=== PATIENT | male | born 1980 | race Caucasian/White ===

== ENCOUNTER 2023-01-14 20:50 | Emergency (ER) | payer OTHER ==
[2023-01-14] MEDS ORDERED: Norflex 60 MG/2 ML IM ONE (21:22)
[2023-01-14] MEDS ORDERED: TORAdol 30 mg Injection IM ONE (21:22)
--- NOTE | 2023-01-14 21:27 | ERPHSYRPT ---
- History of Present Illness Source: patient, other () Exam Limitations: no limitations Patient Subjective Stated Complaint: Pt reports "I was lifting a part at work and had a sharp pain in my lower back that went up and down my back. It happened at about 2am. I tried a heating pad and sitting under hot water in the shower but nothing is helping." Triage Nursing Assessment: Pt alert and oriented x3. Ambulated to ED cot without difficulty. No apaprent respiratory distress. Skin w/p/d. No bruising/lacerations/redness/deformities noted to lower spine. Intact ROM of extremities. Physician History: 42 yo wm w h/o chronic lumbar pain states that he hurt his back lifting at work last night and could not make it through his shift. Pain is 10 on scale and sharp. it is worse w movement and radiates to B legs. He denies incontinence, dysuria, hematuria, and LE paralysis. He needs a work excuse. Timing/Duration: other (Last night) Method of Injury: lifting Quality: sharp Back Pain Location: lumbar spine Back Pain Radiation: lower legs Severity of Pain-Max: severe Severity of Pain-Current: severe Modifying Factors: Improves With: movement Associated Symptoms: denies symptoms Previous symptoms: same symptoms as today Allergies/Adverse Reactions: No Known Drug Allergies Allergy (Unverified 01/14/23 20:57) Hx Tetanus, Diphtheria Vaccination/Date Given: No Hx Influenza Vaccination/Date Given: No Hx Pneumococcal Vaccination/Date Given: No Travel Risk - International Travel Have you traveled outside of the country in past 3 weeks: No - Coronavirus Screening Are you exhibiting any of the following symptoms?: No Close contact with a COVID-19 positive Pt in past 14-21 Days: No - Vaccine Status Have you recieved a Covid-19 vaccination: No - Review of Systems Constitutional: No Symptoms Eyes: No Symptoms Ears, Nose, & Throat: No Symptoms Respiratory: No Symptoms Cardiac: No Symptoms Abdominal/Gastrointestinal: No Symptoms Genitourinary Symptoms: No Symptoms Musculoskeletal: No Symptoms, Back Pain Skin: No Symptoms Neurological: No Symptoms Psychological: No Symptoms Endocrine: No Symptoms Hematologic/Lymphatic: No Symptoms Immunological/Allergic: No Symptoms - Past Medical History Neurological History: No Pertinent History Cardiac History: No Pertinent History Respiratory History: No Pertinent History Endocrine Medical History: No Pertinent History History: Other Psycho-Social History: No Pertinent History Other Medical History: kidney stones, shingles, scoliosis - Past Surgical History Past Surgical History: No - Social History Smoking Status: Current every day smoker Exposure to second hand smoke: Yes Drug Use: marijuana Patient Lives Alone: Yes - Nursing Vital Signs Nursing Vital Signs: Initial Vital Signs Temperature 97.5 F 01/14/23 20:56 Pulse Rate 88 01/14/23 20:56 Respiratory Rate 22 01/14/23 20:56 Blood Pressure 170/90 01/14/23 20:56 O2 Sat by Pulse Oximetry 100 01/14/23 20:56 Pain Scale Pain Intensity [Lower Back] 9 Pain Intensity 7 Hypertension - Physical Exam General Appearance: no apparent distress Eye Exam: PERRL/EOMI, eyes nml inspection Ears, Nose, Throat Exam: normal ENT inspection, TMs normal, pharynx normal, moist mucous membranes Neck Exam: normal inspection, non-tender, supple, full range of motion, No meningismus, No mass, No Brudzinski, No Kernig's, No carotid bruit Respiratory Exam: normal breath sounds, lungs clear, airway intact, No respiratory distress Cardiovascular Exam: regular rate/rhythm, normal heart sounds, normal peripheral pulses, capillary refill <2 sec, No murmur Gastrointestinal Exam: soft, normal bowel sounds, No tenderness Back Exam: vertebral tenderness (Moderate lumbar TTP/Reflexes symmetric/No significant pain w straight leg raises) Extremity Exam: normal inspection, normal range of motion Peripheral Pulses: carotid (R): 2+, carotid (L): 2+ Neurologic Exam: alert, oriented x 3, cooperative, 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 nml as tested, normal mood/affect, nml cerebellar function, nml station & gait, sensation nml Skin Exam: normal color, warm, dry Lymphatic Exam: No adenopathy SpO2 Interpretation: normal SpO2: 100 O2 Delivery: Room Air - Course Nursing assessment & vital signs reviewed: Yes Ordered Tests: Medication Summary Discontinued Medications Generic Name Dose Route Start Last Admin Trade Name Freq PRN Reason Stop Dose Admin Ketorolac Tromethamine 30 mg 01/14/23 21:22 01/14/23 21:31 Ketorolac Tromethamine 30 Mg/Ml Inj IM 01/14/23 21:23 30 mg STAT ONE Administration Ketorolac Tromethamine Confirm 01/14/23 21:28 Ketorolac Tromethamine 30 Mg/Ml Inj Administered 01/14/23 21:29 Dose 30 mg .ROUTE .STK-MED ONE Orphenadrine Citrate 60 mg 01/14/23 21:22 01/14/23 21:31 Orphenadrine Citrate 60 Mg/2 Ml Vial IM 01/14/23 21:23 60 mg STAT ONE Administration Orphenadrine Citrate Confirm 01/14/23 21:28 Orphenadrine Citrate 60 Mg/2 Ml Vial Administered 01/14/23 21:29 Dose 60 mg .ROUTE .STK-MED ONE - Progress Progress: improved Progress Note: 01/14/23 21:28 Nursing note and vital signs reviewed No food or housing insecurities noted Pt has access to medical care/medicine 30mg IM Toradol/60mg IM Norflex Pt wo evidence of cauda equina syndrome or spinal cord compromise Counseled pt/family regarding: diagnosis, need for follow-up - Departure Departure Disposition: Home Clinical Impression: Lumbar strain Condition: Stable Critical Care Time: No Instructions: Low Back Pain (DC) Additional Instructions: Follow up with rikki allen MD or pawan BELTRÁN Norflex/toradol as needed for pain Return to ER as needed Forms: Work/School Release Form Prescriptions: Orphenadrine Citrate 100 mg [Norflex 100 MG Tablet] 100 mg PO BID PRN PRN #10 tab PRN Reason: Pain Ketorolac Trometh 10 mg Tab [TORAdol 10 MG TABLET] 10 mg PO TID PRN PRN #10 tablet PRN Reason: Pain
[2023-01-14] MEDS ORDERED: Norflex 60 MG/2 ML ONE (21:28)
[2023-01-14] MEDS ORDERED: TORAdol 30 mg Injection ONE (21:28)
[2023-01-14 21:55] VITALS: BP 138/94; PULSE 80
[2023-01-14 22:51] VITALS: O2SAT 100
== END 2023-01-14 21:56 | disposition home or self-care (01) ==
LOC: ED 20:50
DX: S39.012A Strain of muscle, fascia and tendon of lower back, initial encounter (principal); X50.9XXA Other and unspecified overexertion or strenuous movements or postures, initial encounter; Y99.0 Civilian activity done for income or pay; Z28.310 Unvaccinated for COVID-19; Z72.0 Tobacco use
CPT/HCPCS: 96372; 99283; J1885; J2360

== ENCOUNTER 2023-01-17 16:53 | Emergency (ER) | payer OTHER ==
--- NOTE | 2023-01-17 16:57 | ERPHSYRPT ---
- History of Present Illness Time Seen by Provider: 01/17/23 16:57 Source: patient Exam Limitations: no limitations Physician History: This is a 42-year-old white male who presents with a left earache that started yesterday followed by pain in the left posterior molar on the left left lower side. Last evening he had swelling to his left jaw and this morning the swelling was increased. He has not had a fever. He has no shortness of breath. Timing/Duration: yesterday Severity: mild (To moderate) Associated Symptoms: denies symptoms, other (Left ear ache, left lower molar pain), No fever Allergies/Adverse Reactions: No Known Drug Allergies Allergy (Verified 01/17/23 17:03) Hx Tetanus, Diphtheria Vaccination/Date Given: No Hx Influenza Vaccination/Date Given: No Hx Pneumococcal Vaccination/Date Given: No Travel Risk - International Travel Have you traveled outside of the country in past 3 weeks: No - Coronavirus Screening Are you exhibiting any of the following symptoms?: No Close contact with a COVID-19 positive Pt in past 14-21 Days: No - Vaccine Status Have you recieved a Covid-19 vaccination: No - Review of Systems Constitutional: No Symptoms Eyes: No Symptoms Ears, Nose, & Throat: Ear Pain (Left side), Other (Left lower molar pain) Respiratory: No Symptoms Cardiac: No Symptoms Abdominal/Gastrointestinal: No Symptoms Genitourinary Symptoms: No Symptoms Musculoskeletal: No Symptoms Skin: No Symptoms Neurological: No Symptoms Psychological: No Symptoms Endocrine: No Symptoms Hematologic/Lymphatic: No Symptoms Immunological/Allergic: No Symptoms All Other Systems: Reviewed and Negative - Past Medical History Pertinent Past Medical History: No Neurological History: No Pertinent History Cardiac History: No Pertinent History Respiratory History: No Pertinent History Endocrine Medical History: No Pertinent History History: Other Psycho-Social History: No Pertinent History Other Medical History: kidney stones, shingles, scoliosis - Past Surgical History Past Surgical History: No - Social History Smoking Status: Current every day smoker Exposure to second hand smoke: Yes Drug Use: marijuana Patient Lives Alone: Yes - Nursing Vital Signs Nursing Vital Signs: Initial Vital Signs Temperature 97.9 F 01/17/23 17:04 Pulse Rate 99 H 01/17/23 17:04 Respiratory Rate 18 01/17/23 17:04 Blood Pressure 148/98 01/17/23 17:04 O2 Sat by Pulse Oximetry 98 01/17/23 17:04 Pain Scale Pain Intensity 0 - Physical Exam General Appearance: no apparent distress, alert, thin Eye Exam: PERRL/EOMI, eyes nml inspection Ears, Nose, Throat Exam: TMs normal, moist mucous membranes, other (Left posterior molar that is fractured with an obvious infection.) Neck Exam: normal inspection, non-tender, supple, full range of motion Respiratory Exam: airway intact, No chest tenderness, No respiratory distress Gastrointestinal/Abdomen Exam: No tenderness Rectal Exam: not done Back Exam: normal inspection, normal range of motion, No CVA tenderness, No vertebral tenderness Extremity Exam: normal inspection, normal range of motion, pelvis stable Neurologic Exam: alert, oriented x 3, cooperative, 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 nml as tested, normal mood/affect, nml cerebellar function, nml station & gait, sensation nml Skin Exam: normal color, warm, dry Lymphatic Exam: No adenopathy SpO2 Interpretation: normal O2 Delivery: Room Air - Course Nursing assessment & vital signs reviewed: Yes - Progress Progress: unchanged Counseled pt/family regarding: diagnosis, need for follow-up Medical Desision Making - Discussion of managment Agreed on:: Treatment plan, need for follow-up - Risk of complications Low Risk: Low risk of morbidity from additional dx testing or treatment The pt has a mod risk of morbidity or mortality based on: Need for prescription drug management - Departure Departure Disposition: Home Clinical Impression: Dental infection, Tooth fracture Condition: Stable Critical Care Time: No Referrals: DOCTOR,NO FAMILY [Primary Care Provider] - Follow up/PCP as directed Additional Instructions: Add ibuprofen 600 mg orally 3 times a day with food for 5 days. Call a dentist tomorrow morning, 01/18/2023, to make arranges for further evaluation management and definitive care. Take your antibiotics as prescribed. Prescriptions: Oxycodone HCl/Acetaminophen [Percocet 5-325 mg Tablet] 1 each PO Q8H PRN PRN #6 tablet MDD 3 PRN Reason: Moderate To Severe Pain Amoxicillin 500 mg Cap [Amoxil 500 mg] 500 mg PO TID #30 cap
[2023-01-17 17:09] VITALS: BP 148/98; PULSE 99; O2SAT 98
[2023-01-17] MEDS ORDERED: AMOXIL 500 MG PO ONE (17:52)
[2023-01-17] MEDS ORDERED: AMOXIL 500 MG ONE (18:01)
== END 2023-01-17 18:12 | disposition home or self-care (01) ==
LOC: ED 16:53
DX: K04.7 Periapical abscess without sinus (principal); S02.5XXA Fracture of tooth (traumatic), initial encounter for closed fracture; H92.02 Otalgia, left ear; K08.89 Other specified disorders of teeth and supporting structures; Z79.891 Long term (current) use of opiate analgesic; Z28.310 Unvaccinated for COVID-19; Z72.0 Tobacco use
CPT/HCPCS: 99281; A9270-GY

== ENCOUNTER 2024-12-23 13:02 | Emergency (ER) | payer MEDICAID, OTHER ==
[2024-12-23 13:34] LABS: Absolute Neutrophil Ct (ANC) 20.86 x10^3/uL (1.78-5.38); BASOPHIL % 0.1 % (0.2-1.2); Basophil (Absolute #) 0.02 x10^3/uL (0.01-0.08); Eosinophil (Absolute #) 0.01 x10^3/uL (0.04-0.54); Hematocrit 42.9 % (40.1-51.0); Hemoglobin 15.2 g/dL (13.7-17.5); IMMATURE GRAN # 0.17 x10^3u/L (0.001-0.031); IMMATURE GRAN % 0.7 % (0.001-0.429); Lymphocyte (Absolute #) 1.33 x10^3/uL (1.32-3.57); Lymphocytes % 5.6 % (21.8-53.1); Mean Cell Volume 88.8 fL (79.0-92.2); Mean Corpuscular Hemoglobin 31.5 pg (25.7-32.2); Mean Corpuscular Hgb Concent. 35.4 g/dL (32.3-36.5); Mean Platelet Volume 11.7 fL (9.4-12.4); Monocytes % 5.1 % (5.3-12.2); Neutrophil % 88.5 % (34.0-67.9); Platelet Count 358 x10^3/uL (163-337); Red Blood Count 4.83 x10^6/uL (4.63-6.08); Red Cell Distribution Width 12.8 % (11.6-14.4); White Blood Count 23.6 x10^3/uL (4.23-9.07)
[2024-12-23 13:59] LABS: Creatinine 1 3.18 mg/dL (0.66-1.25); EST GLOMERULAR FILTRATION RATE 23.8 ML/MIN
[2024-12-23 14:01] LABS: ANION GAP 20.5 MEQ/L (5-15); BILIRUBIN,TOTAL 3.3 mg/dL (0.2-1.3); Calcium 9.2 mg/dL (8.4-10.2); Potassium 3.6 mmol/L (3.5-5.1)
[2024-12-23] MEDS: Sodium Chloride 0.9% 1000 ML 1,000 ML IV STA (14:01)
--- NOTE | 2024-12-23 15:17 | XRAY ---
Indication: Chest pain. Multiple contiguous axial images obtained through the chest without contrast. Comparison: None Diffuse pneumomediastinum and extensive bilateral subcutaneous emphysema throughout chest. Subcutaneous emphysema further extends into neck and proximal upper extremities are not completely included. Spine also demonstrates epidural air. Heart not enlarged. Aorta is normal in course and caliber. Small subcarinal bilateral hilar calcified nodes. Moderately fluid distended esophagus up to 3 cm diameter presumed from gastroesophageal reflux. Esophageal obstruction not completely excluded. Lungs demonstrates mild pulmonary emphysema and a few bilateral calcified granulomas. No suspicious pulmonary mass/nodule, infiltrate, effusion, or pneumothorax. Bony thorax intact. CT abdomen/pelvis reported separately. Impression: 1. Diffuse pneumomediastinum, diffuse chest subcutaneous emphysema, and spinal epidural air. Etiology unknown. 2. Abnormal fluid distended esophagus. Rule out GERD versus distal obstruction. 3. Incidental pulmonary emphysema and old granulomatous disease. Comment: Telephone report given to Dr. Gil at 1507 hrs. on December 23, 2024.
--- NOTE | 2024-12-23 15:22 | XRAY ---
Indication: Abdomen pain. Vomiting. Multiple contiguous axial images obtained through the abdomen and pelvis without contrast. Comparison: None CT chest reported separately. Chest subcutaneous emphysema further extends into the upper abdomen and paraspinal region. Additional small air seen just posterior to left ileopsoas muscle. Noncontrasted stomach and bowel loops appear nonobstructed. There is moderate diffuse scattered colonic fecal debris with mild rectal fecal impaction. No free fluid. Remaining liver, gallbladder, pancreas, spleen, adrenal glands, kidneys, ureters, bladder, and aorta are unremarkable for noncontrast exam. Osseous structures intact. Impression: 1. Continuation of chest subcutaneous emphysema into upper abdomen and paraspinal region. Additional tiny left retroperitoneal air. Etiology unknown. 2. Moderate diffuse fecal stasis with rectal fecal impaction. Comment: Telephone report given to Dr. Gil at 1507 hrs. on December 23, 2024.
[2024-12-23] MEDS ORDERED: Sodium Chloride 0.9% 1000 ML 1,000 ML ONE (15:39)
[2024-12-23] MEDS ORDERED: PIPERACILLIN/TAZOBACTAM IV ONE (15:39)
[2024-12-23] MEDS ORDERED: Sodium Chloride 100ML MINI-BAG PLUS 100 ML IV ONE (15:39)
--- NOTE | 2024-12-23 15:44 | ERPHSYRPT ---
- History of Present Illness Time Seen by Provider: 12/23/24 13:02 Historian: patient, EMS Exam Limitations: no limitations Patient Subjective Stated Complaint: pt c/o of chest pain, weakness, weight loss, vomiting since the beginning of the year Triage Nursing Assessment: Pt brought to the ER by EMS, vitals wnl, rates abdominal pain as 7/10, pulses normal, skin n/w/d, pt reports usually weighing around 180lbs but presents today at 109lbs, unable to eat for over a month, weak, N&V, denies chest pain at this time but was having it earlier Physician History: 44-year-old male with history of tobacco use presented in the ER with chief complaint of chest pain for the last 2 to 3 days with progressive worsening. Patient reports moderate intensity sharp pain all across the chest with no significant aggravating or relieving factors. He got aspirin and route to the ER and pain is better now. Patient reports having off-and-on nausea and vomiting for almost 4 to 6 weeks with more than 40 pounds weight loss. Patient reports he feels weak fatigued tired and dehydrated. Reports having occasionally abdominal cramping but no significant pain. Denies any fall or trauma. Patient is very cachectic and currently weighs around 110's pound Aspirin Treatment Today: 81 mg x 4, provided by EMS Allergies/Adverse Reactions: No Known Drug Allergies Allergy (Verified 12/23/24 13:13) Home Medications: No Reportable Medications [No Reported Medications] 12/23/24 [History] Hx Tetanus, Diphtheria Vaccination/Date Given: No Hx Influenza Vaccination/Date Given: No Hx Pneumococcal Vaccination/Date Given: No Travel Risk - International Travel Have you traveled outside of the country in past 3 weeks: No - Emerging Infectious Disease Are you exhibiting symptoms associated with any current EIDs: Yes Symptoms: Abdominal Pain - Review of Systems Constitutional: Fatigue, Lethargy, Weakness Eyes: No Symptoms Ears, Nose, & Throat: No Symptoms Respiratory: Cough Cardiac: Chest Pain Abdominal/Gastrointestinal: Abdominal Pain, Nausea, Vomiting Genitourinary Symptoms: No Symptoms Musculoskeletal: Myalgias Skin: No Symptoms Neurological: No Symptoms Endocrine: No Symptoms Hematologic/Lymphatic: No Symptoms Immunological/Allergic: No Symptoms - Past Medical History Pertinent Past Medical History: Yes Neurological History: No Pertinent History Cardiac History: No Pertinent History Respiratory History: No Pertinent History Endocrine Medical History: No Pertinent History History: Other Psycho-Social History: No Pertinent History Other Medical History: kidney stones, shingles, scoliosis - Past Surgical History Past Surgical History: No - Social History Smoking Status: Current every day smoker How long have you smoked: years Exposure to second hand smoke: Yes Drug Use: marijuana Patient Lives Alone: Yes - Social Determinants of Health Will the patient participate in the screening: Declined to provide - Nursing Vital Signs Nursing Vital Signs: Initial Vital Signs Pulse Rate 100 H 12/23/24 13:03 Respiratory Rate 21 12/23/24 13:03 Blood Pressure 115/85 12/23/24 13:03 O2 Sat by Pulse Oximetry 99 12/23/24 13:03 Pain Scale Pain Intensity 0 - Physical Exam General Appearance: no apparent distress, alert, cachetic Eye Exam: PERRL/EOMI Ears, Nose, Throat Exam: normal ENT inspection Neck Exam: normal inspection, non-tender, supple, full range of motion Respiratory Exam: normal breath sounds, lungs clear, other (Crepitus) Cardiovascular Exam: regular rate/rhythm, normal heart sounds Gastrointestinal/Abdomen Exam: soft, normal bowel sounds, tenderness (Mild diffuse tenderness. 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 Assembler Hydraulic STAT Care 12/23/24 13:19 Completed EKG-ER Only STAT Care 12/23/24 13:18 Completed IV Insertion STAT Care 12/23/24 13:18 Completed ABDOMEN AND PELVIS W/0 CONTRAS [CT] Stat Exams 12/23/24 13:19 Completed CHEST WITHOUT CONTRAST [CT] Stat Exams 12/23/24 13:18 Completed CBC W DIFF Stat Lab 12/23/24 13:33 Completed CK-Creatinine Phosphokinase Stat Lab 12/23/24 13:33 Completed CMP Stat Lab 12/23/24 13:33 Completed LIPASE Stat Lab 12/23/24 13:33 Completed Lactic Acid Stat Lab 12/23/24 13:35 Completed Lactic Acid Stat Lab 12/23/24 15:41 Completed NT PRO BNPII Stat Lab 12/23/24 13:33 Completed TROPONIN Q4H Lab 12/23/24 13:33 Completed TROPONIN Q4H Lab 12/23/24 17:07 Completed Medication Summary Discontinued Medications Generic Name Dose Route Start Last Admin Trade Name Freq PRN Reason Stop Dose Admin Sodium Chloride 1,000 mls @ 999 mls/hr 12/23/24 13:18 12/23/24 15:53 Sodium Chloride 0.9% 1000 Ml IV 12/23/24 14:18 Infused .Q1H1M STA Infusion Sodium Chloride 1,000 mls @ 125 mls/hr 12/23/24 15:30 12/23/24 15:46 Sodium Chloride 0.9% 1000 Ml IV 01/22/25 15:29 125 mls/hr .Q8H NICANOR Administration Piperacillin Sod/Tazobactam 100 mls @ 200 mls/hr 12/23/24 15:26 12/23/24 15:47 Sod 3.375 gm/ Sodium Chloride IV 12/23/24 15:55 200 mls/hr STAT ONE Administration Sodium Chloride Confirm 12/23/24 15:39 Sodium Chloride 100ml Mini-Bag Plus Administered 12/23/24 15:40 Dose 100 mls @ ud IV .STK-MED ONE Sodium Chloride Confirm 12/23/24 15:39 Sodium Chloride 0.9% 1000 Ml Administered 12/23/24 15:40 Dose 1,000 mls @ ud .ROUTE .STK-MED ONE Piperacillin Sod/Tazobactam Sod Confirm 12/23/24 15:39 Piperacillin/Tazobactam Sodium 3.375 Gm Vial Administered 12/23/24 15:40 Dose 3.375 gm IV .STK-MED ONE Lab/Rad Data: Laboratory Result Diagrams 12/23/24 13:33 12/23/24 13:33 Laboratory Results 12/23/24 12/23/24 12/23/24 Range/Units 17:07 15:41 13:35 WBC (4.23-9.07) x10^3/uL RBC (4.63-6.08) x10^6/uL Hgb (13.7-17.5) g/dL Hct (40.1-51.0) % MCV (79.0-92.2) fL MCH (25.7-32.2) pg MCHC (32.3-36.5) g/dL RDW (11.6-14.4) % Plt Count (163-337) x10^3/uL MPV (9.4-12.4) fL Gran % (34.0-67.9) % Immature Gran % (Auto) (0.001-0.429) % Nucleat RBC Rel Count (0.00-0.2) % Eos # (Auto) (0.04-0.54) x10^3/uL Immature Gran # (Auto) (0.001-0.031) x10^3u/L Absolute Lymphs (auto) (1.32-3.57) x10^3/uL Absolute Monos (auto) (0.30-0.82) x10^3/uL Absolute Nucleated RBC (0.00-0.012) x10^3u/L Lymphocytes % (21.8-53.1) % Monocytes % (5.3-12.2) % Eosinophils % (0.8-7.0) % Basophils % (0.2-1.2) % Absolute Granulocytes (1.78-5.38) x10^3/uL Basophils # (0.01-0.08) x10^3/uL Sodium (135-145) mmol/L Potassium (3.5-5.1) mmol/L Chloride (98-107) mmol/L Carbon Dioxide (22-30) mmol/L Anion Gap (5-15) MEQ/L BUN (9-20) mg/dL Creatinine (0.66-1.25) mg/dL Estimated GFR ML/MIN Glucose (74-106) mg/dL Lactic Acid 1.2 2.0 (0.4-2.0) Calcium (8.4-10.2) mg/dL Total Bilirubin (0.2-1.3) mg/dL AST (17-59) U/L ALT (0-50) U/L Alkaline Phosphatase (38-126) U/L Creatine Kinase (55-170) U/L Troponin I < 0.012 (0.000-0.033) ng/mL NT-Pro-B Natriuret Pep (<300) pg/mL Serum Total Protein (6.3-8.2) g/dL Albumin (3.5-5.0) g/dL Lipase (23-300) U/L Slides for Path Review 12/23/24 12/23/24 12/23/24 Range/Units 13:33 13:33 13:33 WBC 23.6 H (4.23-9.07) x10^3/uL RBC 4.83 (4.63-6.08) x10^6/uL Hgb 15.2 (13.7-17.5) g/dL Hct 42.9 (40.1-51.0) % MCV 88.8 (79.0-92.2) fL MCH 31.5 (25.7-32.2) pg MCHC 35.4 (32.3-36.5) g/dL RDW 12.8 (11.6-14.4) % Plt Count 358 H (163-337) x10^3/uL MPV 11.7 (9.4-12.4) fL Gran % 88.5 H (34.0-67.9) % Immature Gran % (Auto) 0.7 H (0.001-0.429) % Nucleat RBC Rel Count 0.0 (0.00-0.2) % Eos # (Auto) 0.01 L (0.04-0.54) x10^3/uL Immature Gran # (Auto) 0.17 H (0.001-0.031) x10^3u/L Absolute Lymphs (auto) 1.33 (1.32-3.57) x10^3/uL Absolute Monos (auto) 1.20 H (0.30-0.82) x10^3/uL Absolute Nucleated RBC 0.00 (0.00-0.012) x10^3u/L Lymphocytes % 5.6 L (21.8-53.1) % Monocytes % 5.1 L (5.3-12.2) % Eosinophils % 0.0 L (0.8-7.0) % Basophils % 0.1 L (0.2-1.2) % Absolute Granulocytes 20.86 H (1.78-5.38) x10^3/uL Basophils # 0.02 (0.01-0.08) x10^3/uL Sodium 140 (135-145) mmol/L Potassium 3.6 (3.5-5.1) mmol/L Chloride 90 L (98-107) mmol/L Carbon Dioxide 33 H (22-30) mmol/L Anion Gap 20.5 H (5-15) MEQ/L BUN 151 H (9-20) mg/dL Creatinine 3.18 H (0.66-1.25) mg/dL Estimated GFR 23.8 ML/MIN Glucose 142 H (74-106) mg/dL Lactic Acid (0.4-2.0) Calcium 9.2 (8.4-10.2) mg/dL Total Bilirubin 3.30 H (0.2-1.3) mg/dL AST 80 H (17-59) U/L ALT 150 H (0-50) U/L Alkaline Phosphatase 169 H (38-126) U/L Creatine Kinase 95 (55-170) U/L Troponin I < 0.012 (0.000-0.033) ng/mL NT-Pro-B Natriuret Pep 257 (<300) pg/mL Serum Total Protein 8.0 (6.3-8.2) g/dL Albumin 5.0 (3.5-5.0) g/dL Lipase 360 H (23-300) U/L Slides for Path Review YES - Progress Progress: improved, re-examined Air Movement: good Progress Note: 12/23/24 17:38 44-year-old is evaluated in the ER for chest pain along with nausea vomiting, decreased oral intake and weight loss. EKG did not show any acute ST elevations. Patient pain is already improving on presentation. Given fluid bolus, workup showed white count of 23, acute renal failure with a creatinine of 3.1 and BUN of 151, elevated gap and liver enzymes. Obtained CT chest/abdomen pelvis without contrast which showed diffuse pneumomediastinum,, diffuse chest subcutaneous emphysema and spinal epidural air along with distended distal esophagus with possible obstruction. Also has some retroperitoneal air and subcutaneous emphysema upper abdominal wall. Patient is given a dose of Zosyn and another bolus of fluid and will continue with IV hydration. I have discussed with Dr. Lester CT surgeon [facility], reviewed history, workup and he has reviewed CT imaging, patient is excepted for transfer to [facility]. I have shared the results of workup with patient and plan of transfer which he understands and agrees. 12/23/24 17:41 Blood Culture(s) Obtained: Yes Antibiotics given: Yes Discussed with Dr.: Other (Dr. Lester CT surgery [facility]) Will see patient in: ED Counseled pt/family regarding: lab results, diagnosis, rad results, smoking cessation Medical Desision Making - Independent Historian Additional History obtained from: Qual Research Manager/EMT - Discussion of managment Care discussed with:: specialist (Dr. Lester CT surgeon) Reviewed:: Test results Agreed on:: Treatment plan Will see patient: in ED - Diagnostic Testing Diagnostic test were ordered, analyzed, and reviewed by me: Yes Radiological Interpretation: Reviewed by me - Risk of complications The pt has a mod risk of morbidity or mortality based on: Need for major surgery in otherwise healthy patient The pt has a high risk of morbidity or mortality based on: Decision regarding hospitilization or escalation of hosp level of care - Departure Departure Disposition: Transfer Clinical Impression: Pneumomediastinum, Retroperitoneal air, Esophageal obstruction, Acute renal failure (ARF), Dehydration Condition: Stable Critical Care Time: No Referrals: DOCTOR,NO FAMILY [Primary Care Provider] - Follow up/PCP as directed
[2024-12-23] MEDS: Sodium Chloride 0.9% 1000 ML 1,000 ML IV SCH (15:46)
[2024-12-23] MEDS: PIPERACILLIN/TAZOBACTAM 3.375 GM in Sodium Chloride 100ML MINI-BAG PLUS 100 ML IV ONE (15:47)
[2024-12-23 16:14] LABS: Slide Review 1 YES
[2024-12-23 17:58] VITALS: TEMP 98.3
[2024-12-23 20:06] VITALS: BP 116/79; PULSE 87; RESP 19
[2024-12-24 08:08] VITALS: O2SAT 99
== END 2024-12-23 21:10 | disposition short-term general hospital (02) ==
LOC: ED 13:02
DX: J98.2 Interstitial emphysema (principal); K22.2 Esophageal obstruction; N17.9 Acute kidney failure, unspecified; E86.0 Dehydration; R07.9 Chest pain, unspecified; R53.83 Other fatigue; Z72.0 Tobacco use
CPT/HCPCS: 36415; 71250; 74176; 80053; 82550; 83605; 83690; 83880; 84484; 85025; 93005; 93041; 96360; 96374; 99284; 99285